=== PATIENT | male | born 1950 | race Caucasian/White ===

== ENCOUNTER 2017-12-05 07:12 | Day surgery (SDC) | payer MEDICARE ==
[~2017-12-05] VITALS: Ht 182.9 cm; Wt 111.3 kg
[2017-12-05] MEDS ORDERED: JARDIANCE25 MG (07:48)
[2017-12-05] MEDS ORDERED: ATOR20 (07:48)
[2017-12-05] MEDS ORDERED: GLIP5 (07:48)
[2017-12-05] MEDS ORDERED: Desyrel50 MG (07:49)
== END 2017-12-05 10:05 | disposition home or self-care (01) ==
LOC: ORSCSDS 07:12
PROVIDERS: Ophthalmology
PROC: 080PXZZ Alteration of Left Upper Eyelid, External Approach (ICD-10-PCS; principal; 2017-12-05 08:30)
PROC: 080NXZZ Alteration of Right Upper Eyelid, External Approach (ICD-10-PCS; principal; 2017-12-05 08:30)
DX: H02.834 Dermatochalasis of left upper eyelid (principal); H02.831 Dermatochalasis of right upper eyelid; I10 Essential (primary) hypertension; E11.9 Type 2 diabetes mellitus without complications; Z79.899 Other long term (current) drug therapy; E66.9 Obesity, unspecified; Z68.34 Body mass index [BMI] 34.0-34.9, adult
CPT/HCPCS: 82947; J2250; J3010; J7040

== ENCOUNTER → 2020-06-18 | Outpatient (CLI) | payer MEDICARE ==
[~2020-06-18] MED LIST: ATOR20; CLAR500 PO; Desyrel50 MG; GLIP5; JARDIANCE25 MG; Prednisone10 MG PO
[2020-06-19 16:22] LABS: CORONAVIRUS (COVID19) CSH-NRL Positive (Negative)
== END | disposition home or self-care (01) ==
LOC: LAB SHORT 12:29 → LAB 12:29
PROVIDERS: Physician Assistant
DX: U07.1 COVID-19 (principal)
CPT/HCPCS: U0003

== ENCOUNTER 2020-12-23 06:08 | Day surgery (SDC) | payer MEDICARE ==
[~2020-12-23] VITALS: Ht 182.9 cm; Wt 114.2 kg
[~2020-12-23 06:08] MED LIST changes: -CLAR500 PO; -Prednisone10 MG PO
[2020-12-23] MEDS ORDERED: CLAR500 PO (07:03)
[2020-12-23] MEDS ORDERED: Prednisone10 MG PO (07:03)
--- NOTE | 2020-12-23 08:28 | NUR ---
12/23/20 0828 Claudia Marcum EPI 30 MG USED TO SOAK PLEDGETS FOR PACKING PER ORDER.
== END 2020-12-23 12:03 | disposition home or self-care (01) ==
LOC: ORSCSDS 06:08
PROVIDERS: Otolaryngology
PROC: 099X4ZZ Drainage of Left Sphenoid Sinus, Percutaneous Endoscopic Approach (ICD-10-PCS; principal; 2020-12-23 07:30)
PROC: 099S4ZZ Drainage of Right Frontal Sinus, Percutaneous Endoscopic Approach (ICD-10-PCS; principal; 2020-12-23 07:30)
PROC: 09SM0ZZ Reposition Nasal Septum, Open Approach (ICD-10-PCS; principal; 2020-12-23 07:30)
PROC: 099U4ZZ Drainage of Right Ethmoid Sinus, Percutaneous Endoscopic Approach (ICD-10-PCS; principal; 2020-12-23 07:30)
PROC: 099W4ZZ Drainage of Right Sphenoid Sinus, Percutaneous Endoscopic Approach (ICD-10-PCS; principal; 2020-12-23 07:30)
PROC: 099T4ZZ Drainage of Left Frontal Sinus, Percutaneous Endoscopic Approach (ICD-10-PCS; principal; 2020-12-23 07:30)
PROC: 099V4ZZ Drainage of Left Ethmoid Sinus, Percutaneous Endoscopic Approach (ICD-10-PCS; principal; 2020-12-23 07:30)
PROC: 09CW4ZZ Extirpation of Matter from Right Sphenoid Sinus, Percutaneous Endoscopic Approach (ICD-10-PCS; principal; 2020-12-23 07:30)
PROC: 099R4ZZ Drainage of Left Maxillary Sinus, Percutaneous Endoscopic Approach (ICD-10-PCS; principal; 2020-12-23 07:30)
PROC: 099Q4ZZ Drainage of Right Maxillary Sinus, Percutaneous Endoscopic Approach (ICD-10-PCS; principal; 2020-12-23 07:30)
PROC: 09TL4ZZ Resection of Nasal Turbinate, Percutaneous Endoscopic Approach (ICD-10-PCS; principal; 2020-12-23 07:30)
DX: J32.4 Chronic pansinusitis (principal); J34.2 Deviated nasal septum; J34.3 Hypertrophy of nasal turbinates; I10 Essential (primary) hypertension; E78.5 Hyperlipidemia, unspecified; G47.33 Obstructive sleep apnea (adult) (pediatric); K21.9 Gastro-esophageal reflux disease without esophagitis; Z79.899 Other long term (current) drug therapy; Z87.891 Personal history of nicotine dependence; E11.9 Type 2 diabetes mellitus without complications; E66.9 Obesity, unspecified; Z68.34 Body mass index [BMI] 34.0-34.9, adult
CPT/HCPCS: 82947; 88305; 88311; A9270; C2625; J0171; J1100; J1885; J2250; J2405; J2704; J3010; J7120